=== PATIENT | female | born 1960 | race Caucasian/White ===

== ENCOUNTER 2024-09-26 07:54 | Emergency (ER) | payer MEDICARE, BC, SELFPAY ==
--- NOTE | 2024-09-26 08:04 | ED.GENMED ---
ED Provider Triage
-
Patient seen by provider in Triage?: Seen in Triage
History of Present Illness
General
Chief Complaint: Musculo-Skeletal Complaint
Time Seen by Provider: 09/26/24 08:14
History of Present Illness
History of Present Illness:
63-year-old female presents the emergency department due to left knee pain and swelling. Saw orthopedics for this pain 2 days ago and had an arthrocentesis performed, it was reportedly a large hemarthrosis. States she felt better after the
procedure however has again worsened. Having difficulty ambulating. Denies any recent falls or trauma. Does not take blood thinners.
Past History
Past History
ED Past Medical History: HTN and Hypothyroidism; Negative CAD or IDDM
ED Past Surgical History: Cholecystectomy, Gynecological and Other; Negative Appendectomy
Patient has exhibited threatening behavior?: No
PSI?: No
Social History
Tobacco: Non-smoker
Alcohol: None
Drug: None
Personal: Partner
Living: with family
Employment: Employed
Family History
Family History: Other
Review of Systems
Review of Systems
Allergies reviewed?: Yes
All Other Systems: ROS reviewed and negative except as documented in HPI and ROS
Phy Exam
Physical Exam
Physical Exam:
GEN: Well appearing, NAD, WDWN
HEENT: Oral mucosa moist, no scleral icterus
Cardiac: Regular rate
Lung: No respiratory distress, no tachypnea
MSK: Large left knee effusion, range of motion limited by pain
Skin: Good color, no pallor or jaundice, no rashes
Neuro: AO x3, moves all extremities freely
Psych: Calm, cooperative
Course
Orders/Labs/Results
Orders:
Orders
09/26/24 08:11
Knee Immobilizer Left-Treatmen ONCE
Vital Signs
Initial and Last Documented VS:
Initial Vital Signs
Temp Pulse Resp BP Pulse Ox
98.1 F 77 20 170/86 98
09/26/24 08:05 09/26/24 08:05 09/26/24 08:05 09/26/24 08:05 09/26/24 08:05
Last Documented Vital Signs
Temp Pulse Resp BP Pulse Ox
98.1 F 77 20 170/86 98
09/26/24 08:05 09/26/24 08:05 09/26/24 08:05 09/26/24 08:05 09/26/24 08:05
MDM/Problems Addressed
MDM/Problems Addressed:
No indication for repeat arthrocentesis, do not suspect a septic joint at this time. She has a follow-up planned with orthopedics to obtain an outpatient MRI and this week. Will prescribe pain medication and discussed supportive care
*Critical Care Note
Total Time (30-74mins, 75-104mins- exclusive of procedures): Not Applicable
ED Attending Note
-
Portions of this chart may have been created with voice recognition software.� Occasional wrong word or��sound alike� substitutions may have occurred due to the inherent limitations of voice recognition software.
Discharge Plan
Departure
Patient Disposition: Home (Routine Discharge)
Date of Disposition: 09/26/24
Time of Disposition: 08:11
Patient with high blood pressure during this ER visit?: Yes
Discharge Problem:
Hemarthrosis of knee, left
Instructions: Hemarthrosis (DC)
Prescriptions:
New
oxycodone 5 mg tablet
5 mg PO Q8H PRN (Reason: Pain) Qty: 10 0RF
celecoxib 200 mg capsule
200 mg PO BID Qty: 20 0RF
No Action
conjugated estrogens [Premarin] 0.625 MG tablet
0.625 mg PO DAILY
bupropion HCl [Wellbutrin SR] 150 MG tablet sustained-release 12 hr
150 mg PO BID
levothyroxine [Synthroid] 150 MCG tablet
150 mcg PO DAILY
methylprednisolone [Medrol (Jefe)] 4 MG tablets,dose pack
4 tab PO . DIRECT Qty: 1 0RF
famotidine 20 MG tablet
20 mg PO BID Qty: 20 0RF
oxycodone-acetaminophen [Percocet] 5-325 mg tablet
1 tab PO Q6HPRN PRN (Reason: pain) Qty: 10 0RF
Referrals:
Gregory Haddad MD [Active] -
Activity Restrictions/Additional Instructions:
Ice often
Keep knee elevated when possible
Get MRI as scheduled
Follow up with Orthopedics
use your walker when needed
Interventions
Interventions:
*Risk Screen - Suicide Last Done: 09/26/24 08:05
*General Assessment Last Done: 09/26/24 08:05
*Neglect/Abuse Screening Last Done: 09/26/24 08:05
*Nursing Disposition Last Done: 09/26/24 08:32
ED-Musculoskeletal Assessment Last Done: 09/26/24 08:31
Discharge Date and Time
Discharge Date/Time: 09/26/24 08:32
Print Language: AMHARIC
[2024-09-26 08:05] VITALS: BP 170/86
== END 2024-09-26 08:32 | disposition home or self-care (01) ==
LOC: EMR 07:54
PROVIDERS: EMERGENCY PHYSICIAN Emergency Medicine; FAMILY PHYSICIAN Family Medicine
DX: M25.062 Hemarthrosis, left knee (principal); I10 Essential (primary) hypertension; E03.9 Hypothyroidism, unspecified; Z90.49 Acquired absence of other specified parts of digestive tract
CPT/HCPCS: 99282

== ENCOUNTER → 2024-09-30 07:22 | Outpatient (REF) | payer MEDICARE, OTHER, SELFPAY | LOC: MRI 3T 07:22 | PROVIDERS: ATTENDING PHYSICIAN Orthopaedic Surgery; FAMILY PHYSICIAN Family Medicine | DX: M23.92 Unspecified internal derangement of left knee (principal) | CPT/HCPCS: 73721 ==

== ENCOUNTER → 2025-01-30 14:12 | Outpatient (REF) | payer MEDICARE, OTHER, SELFPAY | LOC: RAD 14:12 | PROVIDERS: ATTENDING PHYSICIAN Orthopaedic Surgery; FAMILY PHYSICIAN Family Medicine | DX: M25.562 Pain in left knee (principal) | CPT/HCPCS: 73706; Q9967 ==

== ENCOUNTER → 2025-02-09 12:27 | Outpatient (REF) | payer MEDICARE, OTHER, SELFPAY ==
[2025-02-09 13:38] LABS: % Basophils 0.7 % (0-2); % Eosinophils 1.4 % (0-6); % Immature Granulocytes 0.4 % (0-0.5); % Lymphocytes 17.4 % (20.5-51.1); % Monocytes 8.2 % (1.7-9.3); % Neutrophils 71.9 % (42.2-75.2); Absolute Basophils 0.1 10^3/uL (0-0.2); Absolute Eosinophils 0.2 10^3/uL (0-0.7); Absolute Immature Granulocytes 0.1 10^3/uL (0-0.05); Absolute Monocytes 0.9 10^3/uL (0.1-0.6); Absolute Neutrophils 8.3 10^3/uL (1.4-6.5); Mean Corp Hgb Conc. 34.1 g/dL (33.0-37.0); Mean Corpuscular Hgb 30.2 pg (27.0-31.0); Mean Corpuscular Volume 88.4 fL (81.0-99.0); Mean Platelet Volume 9.7 fL (7.4-10.4); Nucleated Red Blood Cells % 0 %; Platelet Count 369 10^3/uL (130-400); Red Blood Cell Count 4.64 10^6/uL (4.20-5.40); Red Cell Dist. Width 12.3 % (11.5-14.5); White Blood Cell Count 11.5 10^3/uL (4.8-10.8)
[2025-02-09 15:49] LABS: Blood Urea Nitrogen 8 mg/dl (7-17); Calcium 10.1 mg/dl (8.4-10.2); Carbon Dioxide 24 mmol/L (22-30); Chloride 102 mmol/L (98-107); Glucose 113 mg/dl (70-99); Potassium 4.6 mmol/L (3.5-5.1); Sodium 138 mmol/L (135-145); eGFR > 60.00
== END ==
LOC: REG 12:27
PROVIDERS: ATTENDING PHYSICIAN Orthopaedic Surgery; FAMILY PHYSICIAN Family Medicine
DX: Z01.818 Encounter for other preprocedural examination (principal)
CPT/HCPCS: 36415; 80048; 85025; 93005

== ENCOUNTER 2025-08-11 18:38 | Emergency (ER) | payer SELFPAY ==
[2025-08-11 18:58] VITALS: BP 167/90
[2025-08-12 00:19] VITALS: BP 137/67
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
[2025-08-12 02:40] VITALS: BP 138/73
[2025-08-12] MEDS: MOTRIN 600 MG PO (03:23)
== END 2025-08-12 03:32 | disposition home or self-care (01) ==
LOC: EMR 18:38
PROVIDERS: EMERGENCY PHYSICIAN Student in an Organized Health Care Education/Training Program; FAMILY PHYSICIAN Family Medicine
DX: M79.18 Myalgia, other site (principal); I10 Essential (primary) hypertension; E03.9 Hypothyroidism, unspecified; V89.2XXA Person injured in unspecified motor-vehicle accident, traffic, initial encounter; Y92.410 Unspecified street and highway as the place of occurrence of the external cause
CPT/HCPCS: 99284; 70450; 71046; 72125; 93005